=== PATIENT | female | born 1965 | race Caucasian/White ===

== ENCOUNTER 2017-01-11 10:33 | Emergency (ER) | payer OTHER ==
[~2017-01-11] VITALS: Ht 170.2 cm; Wt 77.3 kg
[2017-01-11 10:38] VITALS: TEMP 36.7
[2017-01-11] MEDS ORDERED: CYCL5TAB PO (10:56)
[2017-01-11] MEDS ORDERED: OXYC-57 PO (10:56)
[2017-01-11] MEDS ORDERED: SODIUM CHLORIDE 0.9% 1000ML 1,000 ML IV STA (11:54)
[2017-01-11 11:55] VITALS: O2SAT 98; Ht 170.2 cm; Wt 77.3 kg
[2017-01-11 12:24] LABS: BASO % 0.5 %; BASO ABS # 0.03 K/uL (0-0.2); COMPLETE YES; EOS % 0.8 %; HEMATOCRIT 37.7 % (37-47); IG% 0.2 %; LYMPH % 34.2 %; LYMPH ABS # 2.18 K/uL (1.2-3.4); MEAN CELL VOLUME 92.2 fL (80-100); MEAN CORPUSCULAR HEMOGLOBIN 31.5 pg (25-34); MEAN CORPUSCULAR HGB CONC 34.2 g/dl (32-36); MEAN PLATELET VOLUME 8.9 fL (7.4-10.4); MONO % 5.7 %; NEUT % 58.6 %; PLATELET COUNT 385 K/uL (130-400); RED BLOOD COUNT 4.09 M/uL (4.2-5.4); WHITE BLOOD COUNT 6.37 K/uL (4.8-10.8)
[2017-01-11 12:32] LABS: URINE APPEARANCE CLEAR (CLEAR); URINE BILIRUBIN NEG (NEG); URINE COLOR YELLOW; URINE NITRITE NEG (NEG); URINE PH 6.5 (4.5-7.5); URINE SPECIFIC GRAVITY 1.011 (1.000-1.030); UROBILINOGEN NEG (NEG)
[2017-01-11 12:36] LABS: MANUAL MICROSCOPIC REQUIRED? NO; REVIEW REQ? NO
[2017-01-11 12:39] LABS: ALT/SGPT 31 U/L (12-78); BLOOD UREA NITROGEN 13 mg/dl (7-18); BUN/CREATININE RATIO 15.9 (10-20); CALCIUM 9.3 mg/dl (8.5-10.1); CARBON DIOXIDE 29 mmol/L (21-32); CHLORIDE 100 mmol/L (98-107); GLUCOSE 87 mg/dl (70-99); MAGNESIUM 2.2 mg/dl (1.8-2.4); POTASSIUM 4.1 mmol/L (3.5-5.1); SODIUM 134 mmol/L (136-145)
[2017-01-11 12:50] LABS: ALKALINE PHOSPHATASE 49 U/L (45-117); AST/SGOT 18 U/L (15-37)
--- NOTE | 2017-01-11 13:07 | DIAGNOSTIC IMAGING REPORT ---
SINGLE VIEW CHEST CLINICAL HISTORY: Vieira's palsy. Facial paralysis. FINDINGS: A PA chest radiograph is compared to study dated 06/09/2011. The cardiomediastinal silhouette is unremarkable. The lungs and pleural spaces are clear. No pneumothorax is seen. The bony thorax is grossly intact. IMPRESSION: No active disease in the chest. Electronically signed by: Fredy Vogt M.D. 01/11/2017 1:05 PM Dictated Date/Time: 01/11/2017 1:05 PM
--- NOTE | 2017-01-11 13:08 | DIAGNOSTIC IMAGING REPORT ---
KUB CLINICAL HISTORY: Right flank pain. FINDINGS: 2 AP supine abdominal radiographs are correlated with abdominal CT dated 10/24/2006. There is a nonobstructed abdominal bowel gas pattern noting moderate to severe constipation. No evidence of intraperitoneal free air is seen on these supine views. There are no abnormal abdominal calcifications. Phleboliths are observed in the pelvis. The bony structures appear intact. The lung bases are clear as imaged. IMPRESSION: Moderate to severe constipation, greatest in the right colon. Electronically signed by: Fredy Vogt M.D. 01/11/2017 1:06 PM Dictated Date/Time: 01/11/2017 1:05 PM
[2017-01-11 13:13] LABS: LYME DISEASE AB IGG POS (NEG); LYME DISEASE AB IGM POS (NEG)
--- NOTE | 2017-01-11 13:34 | EMERGENCY ROOM VISIT NOTE ---
History Report prepared by Sergio: Haritha Murillo Under the Supervision of: Dr. Bo Adams D.O. First contact with patient: 11:27 Chief Complaint: NEURO SYMPTOMS Stated Complaint: R FACIAL PARALYSIS Nursing Triage Summary: pt seen @ [facility] [place] week for fevers and headache had R/O testing for Meningitis and Limes Disease Woke up this morning with facial droop and asymmetry states "I feel like I was at the dentist." History of Present Illness The patient is a 51 year old female who presents to the Emergency Room with complaints of persistent right facial paralysis starting this morning. She has been sick for the past 3 weeks. She has had vertigo, neck stiffness, headache, fever, swollen glands, and right kidney pain. She was sent to the ER at [facility] by [facility] 10 days ago. She had a chest X-ray, CT, and lyme test. She did not have a lumbar puncture. Her lyme test was negative at the time. She received migraine medications which resolved her headache and neck stiffness. Her fever has also resolved. She is still having kidney pain. She is scheduled for an ultrasound tomorrow to check for kidney stones. This morning she when she woke up the right side of her face was numb and paralyzed. Her mouth is also dry. She denies any hematuria, leg swelling, leg pain, cough, fever, nausea, vomiting, headache, or rash. She does not have any medical problems and is not on any medications. Her last period was 3-4 years ago. She has not had a hysterectomy. She has had a tubal ligation. She admits to smoking. Source of History: patient Onset: this morning Position: other (right face) Quality: other (paralysis) Timing: other (persistent) Associated Symptoms: No fevers, No headache, No cough, No nausea, No vomiting, No rash Note: Pt reports right kidney pain, mouth dry. Pt denies hematuria, leg swelling, leg pain. Review of Systems See HPI for pertinent positives & negatives. A total of 10 systems reviewed and were otherwise negative. Past Medical & Surgical Surgical Problems: (1) S/P tubal ligation Family History No pertinent family history stated. Social History Smoking Status: Current Every Day Smoker Alcohol Use: occasionally Marital Status: Occupation Status: employed Current/Historical Medications Scheduled Doxycycline (Monohydrate) (Doxycycline Monohydrate), 100 MG PEG BID Scheduled PRN Cyclobenzaprine Hcl (Flexeril), 5 MG PO TID PRN for Muscle Spasms Oxycodone Immediate Rel Tab (Roxicodone Ir), 1-2 TAB PO Q4H PRN for Severe Pain Oxycodone/Acetaminophen 5MG/325MG (Percocet 5MG/325MG), 1 TABLET PO Q6H PRN for Pain Allergies Coded Allergies: No Known Allergies (Unverified , 01/11/17) Physical Exam Vital Signs Date Time Temp Pulse Resp B/P (MAP) Pulse Ox O2 Delivery O2 Flow Rate FiO2 01/11/17 14:48 95 130/79 96 Room Air 01/11/17 13:51 86 16 115/76 98 01/11/17 12:44 82 16 115/85 98 Room Air 01/11/17 12:25 92 118/91 98 Room Air 111 127/86 115 112/78 01/11/17 11:55 96 Room Air 01/11/17 11:55 98 Room Air 01/11/17 11:16 107 01/11/17 11:12 105 16 115/85 96 Room Air 01/11/17 10:38 36.7 118 20 132/94 98 Room Air Physical Exam GENERAL: Patient is awake, alert, mildly anxious, but comfortable appearing. EYES: The conjunctivae are clear. The pupils are round and reactive. EARS, NOSE, MOUTH AND THROAT: The nose is without any evidence of any deformity. Mucous membranes are moist tongue is midline NECK: The neck is nontender and supple. RESPIRATORY: Normal respiratory effort is noted there is no evidence of wheezing rhonchi or rales CARDIOVASCULAR: Regular rate and rhythm noted there no murmurs rubs or gallops normal S1 normal S2 GASTROINTESTINAL: The abdomen is soft. Bowel sounds are present in all quadrants. Abdomen is nontender BACK: Mild right CVA tenderness to percussion, no midline tenderness noted, ROM appeared intact. MUSCULOSKELETAL/EXTREMITIES: There is no evidence of gross deformity full range of motion is noted in the hips and shoulders SKIN: There is no obvious evidence of any rash. There are no petechiae, pallor or cyanosis noted. NEUROLOGIC: Patient is awake alert and oriented x3 strength is symmetric patellar reflexes are 2+ bilaterally, right facial droop with involvement of the forehead. Medical Decision & Procedures ER Provider Diagnostic Interpretation: X-ray results as stated below per interpretation by me and the radiologist. Radiology results as stated below per my review and radiologist interpretation: SINGLE VIEW CHEST CLINICAL HISTORY: Vieira's palsy. Facial paralysis. FINDINGS: A PA chest radiograph is compared to study dated 06/09/2011. The cardiomediastinal silhouette is unremarkable. The lungs and pleural spaces are clear. No pneumothorax is seen. The bony thorax is grossly intact. IMPRESSION: No active disease in the chest. Electronically signed by: Fredy Vogt M.D. 01/11/2017 1:05 PM Dictated Date/Time: 01/11/2017 1:05 PM KUB CLINICAL HISTORY: Right flank pain. FINDINGS: 2 AP supine abdominal radiographs are correlated with abdominal CT dated 10/24/2006. There is a nonobstructed abdominal bowel gas pattern noting moderate to severe constipation. No evidence of intraperitoneal free air is seen on these supine views. There are no abnormal abdominal calcifications. Phleboliths are observed in the pelvis. The bony structures appear intact. The lung bases are clear as imaged. IMPRESSION: Moderate to severe constipation, greatest in the right colon. Electronically signed by: Fredy Vogt M.D. 01/11/2017 1:06 PM Dictated Date/Time: 01/11/2017 1:05 PM ULTRASOUND KIDNEYS AND BLADDER CLINICAL HISTORY: Right flank pain. COMPARISON STUDY: Abdominal CT dated 10/24/2006. TECHNIQUE: Real-time, grayscale, and color flow sonography of the kidneys and bladder is performed. Images are reviewed in the transverse and longitudinal planes. FINDINGS: Kidneys: The kidneys are normal in size and echotexture. The right kidney measures 12.2 x 4.3 x 4.2 cm and the left kidney measures 12.8 x 5.1 x 4.4 cm. There is no hydronephrosis. No shadowing renal calculi are identified. There is no sonographic evidence of contour deforming renal mass lesion. No perinephric fluid is identified. Bladder: The bladder is normal in appearance. Bilateral ureteral jets were seen. IMPRESSION: Unremarkable sonographic assessment of the kidneys and bladder. Electronically signed by: Fredy Vogt M.D. 01/11/2017 1:51 PM Dictated Date/Time: 01/11/2017 1:51 PM Laboratory Results 01/11/17 12:09 Red Blood Count 4.09, Mean Corpuscular Volume 92.2, Mean Corpuscular Hemoglobin 31.5, Mean Corpuscular Hemoglobin Concent 34.2, Mean Platelet Volume 8.9, Neutrophils (%) (Auto) 58.6, Lymphocytes (%) (Auto) 34.2, Monocytes (%) (Auto) 5.7, Eosinophils (%) (Auto) 0.8, Basophils (%) (Auto) 0.5, Neutrophils # (Auto) 3.74, Lymphocytes # (Auto) 2.18, Monocytes # (Auto) 0.36, Eosinophils # (Auto) 0.05, Basophils # (Auto) 0.03 01/11/17 12:09 Test 01/11/17 12:09 White Blood Count 6.37 K/uL (4.8-10.8) Red Blood Count 4.09 M/uL (4.2-5.4) Hemoglobin 12.9 g/dL (12.0-16.0) Hematocrit 37.7 % (37-47) Mean Corpuscular Volume 92.2 fL (80-100) Mean Corpuscular Hemoglobin 31.5 pg (25-34) Mean Corpuscular Hemoglobin Concent 34.2 g/dl (32-36) Platelet Count 385 K/uL (130-400) Mean Platelet Volume 8.9 fL (7.4-10.4) Neutrophils (%) (Auto) 58.6 % Lymphocytes (%) (Auto) 34.2 % Monocytes (%) (Auto) 5.7 % Eosinophils (%) (Auto) 0.8 % Basophils (%) (Auto) 0.5 % Neutrophils # (Auto) 3.74 K/uL (1.4-6.5) Lymphocytes # (Auto) 2.18 K/uL (1.2-3.4) Monocytes # (Auto) 0.36 K/uL (0.11-0.59) Eosinophils # (Auto) 0.05 K/uL (0-0.5) Basophils # (Auto) 0.03 K/uL (0-0.2) RDW Standard Deviation 45.8 fL (36.4-46.3) RDW Coefficient of Variation 13.6 % (11.5-14.5) Immature Granulocyte % (Auto) 0.2 % Immature Granulocyte # (Auto) 0.01 K/uL (0.00-0.02) Urine Color YELLOW Urine Appearance CLEAR (CLEAR) Urine pH 6.5 (4.5-7.5) Urine Specific Beatty 1.011 (1.000-1.030) Urine Protein NEG (NEG) Urine Glucose (UA) NEG (NEG) Urine Ketones NEG (NEG) Urine Occult Blood NEG (NEG) Urine Nitrite NEG (NEG) Urine Bilirubin NEG (NEG) Urine Urobilinogen NEG (NEG) Urine Leukocyte Esterase NEG (NEG) Anion Gap 5.0 mmol/L (3-11) Est Creatinine Clear Calc Drug Dose 87.2 ml/min Estimated GFR () 97.6 Estimated GFR (Non- 84.2 BUN/Creatinine Ratio 15.9 (10-20) Calcium Level 9.3 mg/dl (8.5-10.1) Magnesium Level 2.2 mg/dl (1.8-2.4) Total Bilirubin 0.4 mg/dl (0.2-1) Direct Bilirubin 0.1 mg/dl (0-0.2) Aspartate Amino Transf (AST/SGOT) 18 U/L (15-37) Alanine Aminotransferase (ALT/SGPT) 31 U/L (12-78) Alkaline Phosphatase 49 U/L (45-117) Troponin I < 0.015 ng/ml (0-0.045) Total Protein 8.1 gm/dl (6.4-8.2) Albumin 3.5 gm/dl (3.4-5.0) Thyroid Stimulating Hormone (TSH) 1.230 uIu/ml (0.300-4.500) Lyme Disease IgG Antibody POS (NEG) Laboratory results per my review. Medications Administered Medications (Trade) Dose Ordered Sig/Maikel Route Start Time Stop Time Status Last Admin Dose Admin Sodium Chloride 1,000 ml @ 999 mls/hr Q1H1M STAT IV 01/11/17 11:54 01/11/17 12:54 DC 01/11/17 11:54 999 MLS/HR Doxycycline Hyclate (Vibramycin Cap) 200 mg ONE ONCE PO 01/11/17 14:15 01/11/17 14:16 DC 01/11/17 14:15 200 MG ECG Indication: tachycardia Rate (beats per minute): 105 Rhythm: sinus tachycardia Findings: no ectopy, other (no acute ST segment abnormality) Comparison ECG Date: 09-Jun-2011 Change: Increased rate otherwise no change ED Course 1147: The patient was evaluated in room C5. A complete history and physical examination were performed. 1154: NSS 1000 ml @ 999 mls/hr IV. 1410: Upon reevaluation, the patient is resting comfortably. I discussed the results and treatment plan with her. She verbalized agreement of the treatment plan. She was discharged home. 1415: Doxycycline Hyclate 200 mg PO. Medical Decision Prior records/ancillary studies reviewed and summarized above. Nursing notes reviewed. Additional history obtained from family. The patient's history was concerning for right facial paralysis. Differential diagnosis: Etiologies such as metabolic, infection, hypo/hyperglycemia, electrolyte abnormalities, cardiac sources, intracerebral event, toxicologic, neurologic, as well as others were entertained. Medication Reconciliation: I attest that I have personally reviewed the patient' s current medications list. Blood pressure screening: Patient was found to have normal blood pressure on screening and does not require follow-up. The patient is a 51-year-old female who presented to emergency department for evaluation of right sided facial palsy. The patient was seen recently [facility] emergency department for headache and backache and fever. At that time an extensive workup was undertaken including CT the head laboratory studies. She was also offered a lumbar puncture but did not wish to have this procedure. She states her headache is significantly improved but now she appears to have a right facial droop which includes the forehead as well as continued right back pain. She did not have meningismus or any other focal neurologic deficit besides the right facial droop. The patient's previous laboratory and radiographic studies from [facility] were reviewed. The patient's Lyme titer today appears to be positive. I do feel that her overall condition is likely consistent with Lyme disease. She was started on doxycycline in emergency department. She was encouraged to rest and avoid any strenuous activity. She was also encouraged to follow-up with her family doctor for further evaluation but return to the emergency department immediately if symptoms change worsen or the need arises. Impression Primary Impression: Right-sided Vieira's palsy Additional Impressions: Lyme disease Back pain Scribe Attestation The scribe's documentation has been prepared under my direction and personally reviewed by me in its entirety. I confirm that the note above accurately reflects all work, treatment, procedures, and medical decision making performed by me. Departure Information Dispostion Home / Self-Care Prescriptions Oxycodone Immediate Rel Tab (ROXICODONE IR) 5 Mg Tab 1-2 TAB PO Q4H Y for Severe Pain, #24 TAB Prov: Bo Adams, DO 01/11/17 Doxycycline (Monohydrate) (DOXYCYCLINE MONOHYDRATE) 100 Mg Tab 100 MG PEG BID, #42 TABS Prov: Bo Adams, DO 01/11/17 Referrals Alyssa Maxwell M.D. (MEDICAL) (PCP) Forms HOME CARE DOCUMENTATION FORM, IMPORTANT VISIT INFORMATION, WORK / SCHOOL INSTRUCTIONS Patient Instructions ED [place] Palsy, ED Lyme Disease, [facility] Additional Instructions Call your family in the morning to schedule a follow-up appointment. Rest and avoid any strenuous activity. Continue all medications as prescribed. Return to the emergency department immediately if symptoms change worsen or the need arises. I would also recommend getting Lacri-Lube for your right eye and putting it in your right eye 4-5 times a day and before bedtime. Problem Qualifiers Additional Impressions: Back pain Back pain location: low back pain Chronicity: unspecified Back pain laterality: right Sciatica presence: without sciatica Qualified Codes: M54.5 - Low back pain
--- NOTE | 2017-01-11 13:52 | DIAGNOSTIC IMAGING REPORT ---
ULTRASOUND KIDNEYS AND BLADDER CLINICAL HISTORY: Right flank pain. COMPARISON STUDY: Abdominal CT dated 10/24/2006. TECHNIQUE: Real-time, grayscale, and color flow sonography of the kidneys and bladder is performed. Images are reviewed in the transverse and longitudinal planes. FINDINGS: Kidneys: The kidneys are normal in size and echotexture. The right kidney measures 12.2 x 4.3 x 4.2 cm and the left kidney measures 12.8 x 5.1 x 4.4 cm. There is no hydronephrosis. No shadowing renal calculi are identified. There is no sonographic evidence of contour deforming renal mass lesion. No perinephric fluid is identified. Bladder: The bladder is normal in appearance. Bilateral ureteral jets were seen. IMPRESSION: Unremarkable sonographic assessment of the kidneys and bladder. Electronically signed by: Fredy Vogt M.D. 01/11/2017 1:51 PM Dictated Date/Time: 01/11/2017 1:51 PM
[2017-01-11] MEDS ORDERED: DOXYCYCLINE HYCLATE 100 MG CAP PO ONE (14:15)
[2017-01-11] MEDS ORDERED: OXYC1TAB3 PO (14:33)
[2017-01-11] MEDS ORDERED: DOXY100T17 PEG (14:33)
[2017-01-11 14:48] VITALS: BP 130/79; PULSE 95; O2SAT 96
[2017-01-15 15:39] LABS: 18KDIGG BAND NONREACTIVE (NONREACTIVE); 23KDIGG BAND REACTIVE (NONREACTIVE); 23KDIGM BAND REACTIVE (NONREACTIVE); 28KDIGG BAND NONREACTIVE (NONREACTIVE); 30KDIGG BAND NONREACTIVE (NONREACTIVE); 39KDIGG BAND REACTIVE (NONREACTIVE); 39KDIGM BAND REACTIVE (NONREACTIVE); 41KDIGG BAND REACTIVE (NONREACTIVE); 41KDIGM BAND REACTIVE (NONREACTIVE); 45KDIGG BAND REACTIVE (NONREACTIVE); 58KDIGG BAND REACTIVE (NONREACTIVE); 66KDIGG BAND REACTIVE (NONREACTIVE); 93KDIGG BAND NONREACTIVE (NONREACTIVE)
[2017-01-18 23:33] LABS: EHRLICHIA CHAFF IGG AB <1:64 (<1:64); EHRLICHIA CHAFF IGM AB <1:20 (<1:20)
== END 2017-01-11 15:01 | disposition home or self-care (01) ==
LOC: C.EDB 10:34 → C.EDC 15:01
DX: G51.0 Bell's palsy (principal); A69.20 Lyme disease, unspecified; M54.5 Low back pain; F17.200 Nicotine dependence, unspecified, uncomplicated